=== PATIENT | female | born 1995 | race Hispanic/Latino ===

== ENCOUNTER 2021-03-14 12:49 | Observation (INO) | payer SELFPAY ==
[2021-03-14 13:30] LABS: Absolute Lymphocytes (CBC) 1.2 K/uL (0.7-4.9); Basophils % 0.8 % (0-1.3); Hematocrit 42.9 % (36.0-45.0); Lymphocytes % 25.2 % (15.3-44.8); MPV 7.5 fL (7.6-11.3); RBC Red Blood Cell Count 4.99 M/uL (3.86-4.86)
[2021-03-14 13:39] LABS: Urine Blood Trace-lysed (Negative); Urine Glucose Negative (Negative); Urine Protein Negative (Negative); Urine pH 6.5 (5.0-7.0)
[2021-03-14 13:51] LABS: Albumin 3.6 g/dL (3.4-5.0); Bilirubin Direct 0.3 mg/dL (0-0.2); Bilirubin Total 2.1 mg/dL (0.2-1.0); Protein, Total 7.7 g/dL (6.4-8.2)
[2021-03-14] MEDS ORDERED: ONDANSETRON 4 MG/2 ML VIAL ONE ×2 (14:53→17:01)
--- NOTE | 2021-03-14 15:02 | RAD REPORT ---
EXAM DESCRIPTION: CTAbdomen Pelvis W Contrast - 03/14/2021 2:53 pm CLINICAL HISTORY: Abdominal pain. ABD PAIN COMPARISON: No comparisons TECHNIQUE: Biphasic CT imaging of the abdomen and pelvis was performed with 100 ml non-ionic IV cont rast. All CT scans are performed using dose optimization technique as appropriate and may include automated exposure control or mA/KV adjustment according to patient size. FINDINGS: The lung bases are clear. The liver, spleen, pancreas, adrenal glands and kidneys are within normal limits. No bowel obstruction, free air, free fluid or abscess. The appendix is dilated to 11 mm with surroun ding inflammation. No evidence of significant lymphadenopathy. No suspicious bony findings. IMPRESSION: Acute appendicitis.
[2021-03-14] MEDS ORDERED: NA CHLORIDE 0.9% 0 ML ONE ×2 (15:20→15:38)
[2021-03-14] MEDS ORDERED: PIPERACIL/TAZO 3.375 GM VIAL IV ONE ×2 (15:20→15:39)
--- NOTE | 2021-03-14 15:21 | RAD REPORT ---
EXAM DESCRIPTION: US - Abdomen Exam Limited - 03/14/2021 3:12 pm CLINICAL HISTORY: ABD PAIN COMPARISON: <Comparisons> FINDINGS: The gallbladder demonstrates no gallstones. No pericholecystic fluid or gallbladder wall t hickening. The common bile duct is normal measuring 2 mm. The liver demonstrates no findings of intrahepatic biliary dilatation. IMPRESSION: Unremarkable examination.
[2021-03-14] MEDS ORDERED: NA CHLORIDE 0.9% 100 ML ONE (15:40)
--- NOTE | 2021-03-14 16:24 | ER ---
Nurse's Notes [facility] Name: Maria Guadalupe Daugherty Age: 25 yrs Sex: Female : 1995 Arrival Date: 03/14/2021 Time: 12:58 Bed 7 Private MD: Diagnosis: Lower abdominal pain, unspecified;Unspecified acute appendicitis Presentation: 03/14 13:13 Chief complaint: Patient states: Abd pain around belly button, pain gets worse when ld1 laughing. "I feel like something is sitting on me, extra weight/pressure on my stomach.". Coronavirus screen: At this time, the client does not indicate any symptoms associated with coronavirus-19. Ebola Screen: No symptoms or risks identified at this time. Initial Sepsis Screen: Does the patient meet any 2 criteria? No. Patient's initial sepsis screen is negative. Does the patient have a suspected source of infection? No. Patient's initial sepsis screen is negative. Risk Assessment: Do you want to hurt yourself or someone else? Patient reports no desire to harm self or others. Onset of symptoms was March 14, 2021. 13:13 Method Of Arrival: Ambulatory ld1 13:13 Acuity: MASON 3 ld1 Triage Assessment: 13:15 General: Appears in no apparent distress. comfortable, Behavior is calm, cooperative, ld1 appropriate for age. Pain: Complains of pain in umbilical area Pain does not radiate. Pain currently is 6 out of 10 on a pain scale. at worst was 10 out of 10 on a pain scale. Quality of pain is described as heavy, pressure, Pain began 1 day ago. Is continuous. EENT: No signs and/or symptoms were reported regarding the EENT system. Neuro: Level of Consciousness is awake, alert, obeys commands, Oriented to person, place, time, situation. Cardiovascular: Capillary refill < 3 seconds Patient's skin is warm and dry. Respiratory: Airway is patent Respiratory effort is even, unlabored, Respiratory pattern is regular, symmetrical. GI: Abdomen is round non-distended, Reports lower abdominal pain, upper abdominal pain, bloating, constipation, nausea. 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 - Social history:: Smoking status: Patient denies any tobacco usage or history of. Patient/guardian denies using alcohol. Screenin:06 Abuse screen: Denies threats or abuse. Denies injuries from another. Nutritional jt3 screening: No deficits noted. Tuberculosis screening: No symptoms or risk factors identified. Fall Risk None identified. Assessment: 15:06 General: Appears in no apparent distress. Behavior is calm, cooperative. GI: Bowel jt3 sounds present X 4 quads. Abd is soft Abdomen is tender to palpation in right lower quadrant and left lower quadrant. 16:05 Reassessment: Pt. states her pain is under control at this time. Alert and oriented x4. jt3 Call hayden within reach. . Vital Signs: 13:13 BP 120 / 89; Pulse 99; Resp 18; Temp 98.7(TE); Pulse Ox 99% on R/A; Weight 88.45 kg; ld1 Height 5 ft. 1 in. (154.94 cm); Pain 6/10; 16:04 BP 105 / 52; Pulse 97; Resp 16; Pulse Ox 97% on R/A; jt3 13:13 Body Mass Index 36.84 (88.45 kg, 154.94 cm) ld1 ED Course: 12:58 Patient arrived in ED. ds1 13:15 Triage completed. ld1 13:15 Arm band placed on right wrist. ld1 14:10 Vin Jackson PA is PHCP. jmm 14:10 Yousif Terry MD is Attending Physician. jmm 14:44 Gavin Keys, LATONIA is Primary Nurse. jt3 14:52 CT Abd/Pelvis - IV Contrast Only In Process Unspecified. EDMS 15:06 Patient has correct armband on for positive identification. Bed in low position. Call jt3 light in reach. Side rails up X2. 15:06 No provider procedures requiring assistance completed. Inserted saline lock: 20 gauge jt3 in right antecubital area, using aseptic technique. 15:11 US Abdomen Limited In Process Unspecified. EDMS 16:23 Carl Acevedo MD is Hospitalizing Provider. jmm 17:03 COVID-19 SARS RT PCR (Document "Date of Onset" if Symptomatic) Sent. [facility] 17:03 Initial lab(s) drawn, by ED staff, sent to lab. EKG done, by ED staff, reviewed by Porter Terry MD. Administered Medications: 15:30 Drug: Zosyn (piperacillin-tazobactam) 3.375 grams Route: IVPB; Infused Over: 60 mins; as6 Site: right antecubital; Outcome: 16:23 Decision to Hospitalize by Provider. [facility] 17:31 Patient left the ED. [facility] Signatures: Dispatcher [employer] EDMS Vin Jackson PA PA jmm Sanford, Demi ds1 Martinez, Maria 5 Margo Frances, RN RN ld1 Gavin Keys RN RN jt3 Dallin Mariscal RN RN as6
--- NOTE | 2021-03-14 16:25 | EDPHYS ---
Physician Documentation [facility] Name: Maria Guadalupe Daugherty Age: 25 yrs Sex: Female : 1995 Arrival Date: 03/14/2021 Time: 12:58 Bed 7 Private MD: Yousif Silverio HPI: 03/14 13:17 This 25 yrs old Female presents to ER via Ambulatory with complaints of jmm Abdominal Pain. 13:17 The patient presents with abdominal pain. Onset: The symptoms/episode began/occurred jmm gradually, 1 day(s) ago. The symptoms do not radiate. Associated signs and symptoms: Pertinent positives: nausea and vomiting, Pertinent negatives: fever. The symptoms are described as achy. Modifying factors: The symptoms are alleviated by nothing, the symptoms are aggravated by nothing. The patient has not experienced similar symptoms in the past. 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 - Social history:: Smoking status: Patient denies any tobacco usage or history of. Patient/guardian denies using alcohol. ROS: 13:17 Constitutional: Negative for fever, chills, and weight loss, Cardiovascular: Negative jmm for chest pain, palpitations, and edema, Respiratory: Negative for shortness of breath, cough, wheezing, and pleuritic chest pain. 13:17 Abdomen/GI: Positive for abdominal pain. 13:17 All other systems are negative. Exam: 13:17 Constitutional: This is a well developed, well nourished patient who is awake, alert, jmm and in no acute distress. Head/Face: atraumatic. Eyes: EOMI, no conjunctival erythema appreciated ENT: Moist Mucus Membranes Neck: Trachea midline, Supple Chest/axilla: Normal chest wall appearance and motion. Cardiovascular: Regular rate and rhythm. No edema appreciated Respiratory: Normal respirations, no respiratory distress appreciated 13:17 Back: Normal ROM Skin: General appearance color normal MS/ Extremity: Moves all extremities, no obvious deformities appreciated, no edema noted to the lower extremities Neuro: Awake and alert, normal gait Psych: Behavior is normal, Mood is normal, Patient is cooperative and pleasant 13:17 Abdomen/GI: Inspection: abdomen appears normal, Bowel sounds: normal, Palpation: soft, rebound tenderness, is appreciated in the right lower quadrant. Vital Signs: 13:13 BP 120 / 89; Pulse 99; Resp 18; Temp 98.7(TE); Pulse Ox 99% on R/A; Weight 88.45 kg; ld1 Height 5 ft. 1 in. (154.94 cm); Pain 6/10; 16:04 BP 105 / 52; Pulse 97; Resp 16; Pulse Ox 97% on R/A; jt3 13:13 Body Mass Index 36.84 (88.45 kg, 154.94 cm) ld1 MDM: 14:19 Patient medically screened. christy 16:22 Data reviewed: vital signs, nurses notes. Counseling: I had a detailed discussion with jimmie the patient and/or guardian regarding: the historical points, exam findings, and any diagnostic results supporting the discharge/admit diagnosis, lab results, radiology results, the need for further work-up and treatment in the hospital. ED course: I discussed the patient with Dr. Acevedo whom accepted the patient for admission. . 03/14 13:17 Order name: Basic Metabolic Panel; Complete Time: 14:12 [facility] 03/14 13:17 Order name: CBC with Diff; Complete Time: 14:12 1 03/14 13:17 Order name: Hepatic Function; Complete Time: 14:12 1 03/14 13:17 Order name: Lipase; Complete Time: 14:12 [facility] 03/14 13:39 Order name: Urine Dipstick-Ancillary; Complete Time: 14:12 [facility] 03/14 13:43 Order name: Urine --Ancillary (enter results); Complete Time: 15:32 bd 03/14 16:29 Order name: Basic Metabolic Panel [facility] 03/14 16:29 Order name: Basic Metabolic Panel [facility] 03/14 16:29 Order name: CBC with Automated Diff [facility] 03/14 16:29 Order name: CBC with Automated Diff [facility] 03/14 16:29 Order name: Lipase [facility] 03/14 16:29 Order name: Lipase [facility] 03/14 16:29 Order name: Liver (Hepatic) Function [facility] 03/14 16:29 Order name: Liver (Hepatic) Function [facility] 03/14 13:17 Order name: IV Saline Lock; Complete Time: 14:12 [facility] 03/14 13:17 Order name: Labs collected and sent; Complete Time: 14:12 [facility] 03/14 13:22 Order name: Urine Dipstick-Ancillary (obtain specimen); Complete Time: 14:15 [facility] 03/14 14:36 Order name: US Abdomen Limited; Complete Time: 15:32 [facility] 03/14 14:36 Order name: CT Abd/Pelvis - IV Contrast Only; Complete Time: 15:07 [facility] 03/14 16:29 Order name: NPO [facility] 03/14 16:31 Order name: COVID-19 SARS RT PCR (Document "Date of Onset" if Symptomatic) [facility] Administered Medications: 15:30 Drug: Zosyn (piperacillin-tazobactam) 3.375 grams Route: IVPB; Infused Over: 60 mins; as6 Site: right antecubital; Disposition: 23:16 Co-signature as Attending Physician, Yousif Terry MD I agree with the assessment and christy plan of care. Disposition Summary: 03/14/21 16:23 Hospitalization Ordered Hospitalization Status: Observation [facility] Provider: Carl Acevedo Condition: Stable [facility] Problem: new m Symptoms: are unchanged [facility] Bed/Room Type: Standard [facility] Location: Telemetry/MedSurg (observation)(03/14/21 16:40) bd Room Assignment: 225(03/14/21 16:40) bd Diagnosis - Lower abdominal pain, unspecified jmm - Unspecified acute appendicitis [facility] Forms: - Medication Reconciliation Form jmm - SBAR form [facility] Signatures: Dispatcher [employer] Ayesha Palomino Corey, MD MD cha Mickail, Joel, PA PA jmm Margo Frances RN RN ld1 Dallin Mariscal RN RN as6 Corrections: (The following items were deleted from the chart) 16:40 16:23 Operating Room jmm bd 16:40 16:23 jmm bd
[2021-03-14] MEDS ORDERED: ONDANSETRON 4 MG/2 ML VIAL IV PRN (16:26)
[2021-03-14] MEDS ORDERED: MORPHINE 4 MG/ML SYR IV PRN (16:26)
[2021-03-14] MEDS ORDERED: ACETAMINOPHEN 500 MG TAB PO PRN (16:26)
[2021-03-14] MEDS ORDERED: NA CIT/CITRIC AC 30 ML ORAL UDC ONE (16:51)
[2021-03-14] MEDS ORDERED: GLYCOPYRROLATE 0.2 MG/ML SYR ONE ×3 (16:56→17:45)
[2021-03-14] MEDS ORDERED: MIDAZOLAM HCL 2 MG/2 ML INJ ONE (16:56)
[2021-03-14] MEDS ORDERED: FENTANYL CITR 100 MCG/2 ML ONE (16:56)
[2021-03-14] MEDS ORDERED: LIDOCAINE 1% MPF 2 ML AMPULE ONE (16:56)
[2021-03-14] MEDS ORDERED: propofoL 200 MG/20 ML VIAL IV ONE (16:57)
[2021-03-14] MEDS ORDERED: ROCURONIUM 50 MG/5 ML VIAL IV ONE (16:59)
[2021-03-14] MEDS ORDERED: dexAMETHasone 10 MG/ML VIAL ONE (16:59)
[2021-03-14] MEDS: Ringers Lactate 1,000 ML IV ONE ×2 (17:00→17:08)
[2021-03-14] MEDS ORDERED: D5 0.45 NS 1,000 ML IV SCH (17:00)
--- NOTE | 2021-03-14 17:55 | P.BOP ---
Preoperative diagnosis: acute appendicitis Postoperative diagnosis: same Primary procedure: Laparoscopic appendectomy Estimated blood loss: <10cc Specimen: [email or web address] Findings: as above Anesthesia: General Transferred to: Recovery Room Condition: Good
[2021-03-14] MEDS ORDERED: NEOSTIGMINE 1 MG/ML -5 ML ONE (17:58)
[2021-03-14] MEDS ORDERED: CEFOXITIN SODIUM 1 GM/VIAL IVPB SCH (18:00)
[2021-03-14] MEDS: HYDROMORPHONE HCL 1 MG/ML INJ ONE ×6 (18:16→18:50)
[2021-03-14 19:21] VITALS: O2SAT 96
[2021-03-14 19:42] VITALS: BMI 36.8
[2021-03-14] MEDS: HYDROCODONE/APAP 5/325 MG TAB PO PRN (21:44)
[2021-03-14] MEDS: CEFOXITIN 1 GM in NA CHLORIDE 0.9% 50 ML IVPB SCH (23:11)
--- NOTE | 2021-03-15 02:57 | HP ---
Date of Admission: 03/14/2021 Diagnoses: Acute appendicitis. History Of Present Illness: This is a case of a 25-year-old patient, came with abdominal pain, epiga stric, right upper quadrant since yesterday. Today, it was not getting better so she decided to come to the ER. She was diagnosed with acute appendicitis and a surgical consult emergently was obtained . She denies any trauma. Denies any dysuria, hematochezia, or melena. Denies any travel out of the country. Denies any family member sick at home. She is still have nausea and vomiting. Last menst rual period is 03/11/2001. Allergies: NONE. Medications: None. Past Surgical History: None. Social History: She does not smoke. She does not drink alcohol. Family History: Noncontributory. Review of Systems: Nausea, vomiting, abdominal pain. 10-points otherwise unremarkable. Physical Examination: General: The patient is awake and alert. HEENT: Pupils are equal, reactive, anicteric. Neck: Supple. Chest: Clear. Breasts: Deferred. Abdomen: Soft and depressible. Right lower quadrant tenderness with Rovsing sign positive. Psoas s igns positive. Pelvic: Deferred. Rectal: Deferred. Extremities: Good capillary refill. Neuro: Cranial nerves 2-12 grossly within normal limits. Laboratory Data: Blood work shows WBC count of 4.9 with a neutrophils 67.6, potassium 3.0, BUN is 4. Total bilirubin of 2.1. Lipase 112. Imaging: CAT scan of the abdomen and pelvis interpreted by Dr. Inman as acute appendicitis with dila mae appendix and surrounding inflammation. Assessment: This is a 25-year-old patient with acute appendicitis. The benefits, alternatives, and risks of laparoscopic and possible open appendectomy were fully explained, which include, but not villareal ited to infection, bleeding, damage to adjacent structures, anesthetic complication, abscess, OH, and even . She also understands this may not relieve symptoms. She might need more than one surgi harish intervention. She understood, signed the consent. The same was explained to the patient's mom p er patient request. The OR was emergently called. JANE Voice ID: [id number]
--- NOTE | 2021-03-15 04:03 | OP ---
Date of Procedure: 03/14/2021 Surgeon: Carl Acevedo MD Preoperative Diagnosis: Acute appendicitis. Postoperative Diagnosis: Acute appendicitis. Procedure: Laparoscopic appendectomy. Estimated Blood Loss: Less than 10 mL. Specimen: Appendix. Anesthesia: General plus local. Indication: This is a case of a 25-year-old patient, who came to us with acute appendicitis. The be nefits, alternatives, and risks of laparoscopic possible open appendectomy were fully explained which include, but not limited to infection, bleeding, damage to adjacent structures, anesthesia complicat ion, ND, and even . She also understands this may not relieve symptoms. She might need more th an one surgical intervention. She understood, signed a consent. Procedure In Detail: The patient was brought to the operating room, placed in supine position. Anes thesia was done without complication. Abdominal area was prepped and draped in sterile fashion. A t cruz-out was called. Local anesthetic was applied to the area to be incised. First incision was done in the periumbilical region. Incision was carried down to fascia, which was opened under direct vis ion. Vicryl #1 placed inside the fascia. Mackenzie trocar was carefully introduced. No bleeding was o btained. I placed 2 more trocars, 5 mm each one of them in the suprapubic and left lower quadrant un christiano direct visualization. This allowed me to visualize an appendix, which looks inflamed and dilated as described on the CAT scan. We identified the base of the appendix and spared from this problem, so we created a window in the base of the appendix, transected that with Endo GAURAV 45 mm 3.5. The mes oappendix was transected with the Endo-GAURAV 45 mm vascular size. Further hemostasis was obtained with the help of 5 mm hemoclips. Appendix removed from abdominal cavity using EndoCatch through the umbi lical incision. It was inspected once again, no bleeding, no bowel leak. At that moment, I proceede d to remove the trocars under direct vision. Deflated pneumoperitoneum. Closed the fascia with #1 V icryl. Irrigated the subcutaneous tissue, closed with 3-0 chromic, and skin approximated with staple s. Sponge count and instrument count correct. The patient tolerated the procedure well. The patien t on her way to recovery in stable condition. HM/MODL Voice ID: [id number] Report ID: [id number]
[2021-03-15] MEDS ORDERED: CEFOXITIN SODIUM 1 GM/VIAL ONE (05:02)
[2021-03-15] MEDS ORDERED: NA CHLORIDE 0.9% 50 ML ONE (05:09)
[2021-03-15] MEDS: CEFOXITIN 1 GM in NA CHLORIDE 0.9% 50 ML IVPB SCH ×2 (05:11→11:32)
[2021-03-15] MEDS: HYDROCODONE/APAP 5/325 MG TAB PO PRN ×2 (05:12→10:29)
[2021-03-15 05:46] LABS: Absolute Lymphocytes (CBC) 0.8 K/uL (0.7-4.9); Basophils % 0.1 % (0-1.3); Hematocrit 39.2 % (36.0-45.0); Lymphocytes % 10.3 % (15.3-44.8); MPV 7.4 fL (7.6-11.3)
[2021-03-15 05:56] LABS: BUN Blood Urea Nitrogen 4 mg/dL (7-18); Bicarbonate 25 mmol/L (21-32); Glucose Level 148 mg/dL (74-106); Potassium 3.8 mmol/L (3.5-5.1); Sodium Level 139 mmol/L (136-145)
[2021-03-15 06:34] LABS: Blood Morphology Comment NOT SEEN (NOT SEEN); Platelet Estimate ADEQ; Platelets, Giant NOTED; White Blood Cell Scan OK (OK)
[2021-03-15 12:06] VITALS: BP 108/59; TEMP 98.1
== END 2021-03-15 12:15 | disposition home or self-care (01) ==
LOC: ER 12:49 → ERHOLD 16:25 → 2ND 19:11
PROVIDERS: ADMIT Surgery; ATTEND Surgery
PROC: 0DTJ4ZZ Resection of Appendix, Percutaneous Endoscopic Approach (ICD-10-PCS; principal; 2021-03-14 14:15)
DX: K35.80 Unspecified acute appendicitis (principal); Z20.822 Contact with and (suspected) exposure to COVID-19
CPT/HCPCS: 36415; 74177; 76705; 80048; 80076; 81003; 81025; 83690; 85025; 88304; 94010; 96374; 99284; G0378; J0694; J1100; J1170; J2250; J2405; J2543; J2704; J2710; J3010; J7050; J7120; J7799; Q9967; U0003

== ENCOUNTER 2024-10-04 15:27 | Emergency (ER) | payer BC, SELFPAY ==
--- OUTSIDE RECORDS SUMMARY | 2024-10-04 15:30 | XMS REPORT | Continuity of Care Document ---
Author Name Unknown Address [address] [facility] [place] [address] Organization [facility] [place] Address [address] [facility] [address] [place] [address] Care Team Providers Care Inorganic Chemistry Professor Name Role Phone LAMINE MACK Primary Care Physician Unavaila DOMITILA Trent Attending Clinician Unavailable DOMITILA WILLETT Attending Clinician Unavailable LAMINE MACK Attending Clinician Unavailable LAMINE MACK Attending Clinician Unavailable FRITZ BLOOM Attending Clinician Unavailable Fritz Bloom MD Attending Clinician [phone] Lamine Mack MD Attending Clinician [phone] Doctor Unassigned, [place] Attending Clinician [facility] Lab, Ang - Db Attending Clinician Unavailable Yessica Mcmullen MD Attending Clinician [phone] VALENTINA GALLEGOS Attending Clinician Karolina vailable YING SOLORZANO Attending Clinician Unavailable Yign Pemberton Attending Clinician [phone] Domitila Willett MD Attending Clinician [phone] Valentina Gallegos MD Attending Clinician Lab, Ang - Db Attending Clinician Unavailable Teresa Esparza LMSW Attending Clinician Doctor Unassigned, [place] Attending Clinician U navailable Payers Payer Name Policy Type Policy Number Effective Date Expirati on Date Source [facility] [id number] 2022 00:00:00 Problems Condition Name Condition Details Condition Category Status Onset Date Resolution Date Last Treatment Date Treating Clinician Comments Source Precordial pain Precordial pain Disease Active 06-11 00:00: 00 [facility] Elevated troponin Elevated troponin Disease Active 06-11 00:00: 00 [facility] PVC's (premature ventricula r contractio ns) PVC's (premature ventricula r contractio ns) Disease Active 06-11 00:00: 00 [facility] control counseling control counseling Disease Resolve d 09-24 00:00: 00 2024-03-12 00:00:00 2024-03-12 14:58:05 [facility] Allergies, Adverse Reactions, Alerts Allergy Name Allergy Type Status Severity Reaction(s) Onset Date Inactive Date Treating Clinician Comments Source NO KNOWN ALLERGIE S Drug Class Active [facility] Social History Social Habit Start Date Stop Date Quantity Comments Source Gender identity [facility] Alcoholic beverage intake 2024-06-15 00:00:00 2024-06-15 00:00:00 Current drinker of alcohol (finding) [facility] History of Social function 2024-05-18 00:00:00 2024-05-18 00:00:00 [facility] Alcohol intake 2023-03-12 00:00:00 2023-03-12 00:00:00 Current drinker of alcohol (finding) [facility] Exposure to SARS-CoV-2 (event) 2022-08-25 00:00:00 2022-09-04 16:29:00 Not sure [facility] Tobacco use and exposure 2022-07-03 00:00:00 2022-07-03 00:00:00 Smokeless tobacco non-user [facility] Alcohol Comment 2022-07-03 00:00:00 2022-07-03 00:00:00 social-1-2 drinks monthly [facility] Sex assigned at 1995 00:00:00 1995 00:00:00 [facility] Smoking Status Start Date Stop Date Source Tobacco smoking consumption unknown [facility] Never smoked tobacco [facility] Medications Ordered Medication Name Filled Medication Name Start Date Stop Date Current Medication? Ordering Clinician Indication Dosage Frequency Signature (SIG) Comments Components Source pantoprazol e 20 mg EC tablet 05-18 00:00: 00 06-18 05:59 :00 No [id number] 20mg Take 1 tablet by mouth in the morning and 1 tablet in the evening. Do all this for 30 days. [facility] ergocalcife rol, vitamin d2, (VITAMIN D2) 1,250 mcg (50,000 unit) capsule 2023-05 00:00: 00 07-03 05:59 :00 No [id number] Take 1 capsule by mouth weekly for 12 doses. [facility] norethindro ne-e.estrad ioL-iron (MICROGESTI N FE) 1.5 mg-30 mcg (21)/75 mg (7) tablet 2023-05 00:00: 00 Yes [id number] 1{tbl} Take 1 tablet by mouth every morning. [facility] bromphenira mine-pseudo ephedrine-D M (BROMFED DM) 2-30-10 mg/5 mL syrup 2023-05 0 00:00: 00 03-16 05:59 :00 No [id number] 5mL Take 5 mL by mouth 4 (four) times daily as needed for Congestion /Allergies or Cough for up to 10 days. [facility] methylPREDN ISolone 4 mg tablets 2023-05 0 00:00: 00 03-12 04:59 :00 No [id number] Take by mouth SEE-INSTRU CTIONS for 6 days. follow package directions [facility] norethindro ne-e.estrad ioL-iron (MICROGESTI N FE) 1.5 mg-30 mcg (21)/75 mg (7) tablet 5-14 00:00: 00 03-12 00:00 :00 No [id number] 1{tbl} TAKE ONE (1) TABLET(S) BY MOUTH EVERY MORNING. [facility] norethindro ne-e.estrad ioL-iron (MICROGESTI N FE) 1.5 mg-30 mcg (21)/75 mg (7) tablet 2-21 00:00: 00 09-23 00:00 :00 No [id number] 1{tbl} Take 1 tablet by mouth in the morning. [facility] psyllium (FIBER) 0.52 gram capsule 2022-05 00:00: 00 04-03 00:00 :00 No [id number] .52g Take 1 capsule by mouth in the morning. [facility] polyethylen e glycol 3350 17 gram powder 2022-05 00:00: 00 04-03 00:00 :00 No [id number] 1{packe t} Take 1 Packet by mouth in the morning. [facility] omeprazole 40 mg capsule 2022-05 00:00: 00 04-03 00:00 :00 No [id number] 40mg Take 1 capsule by mouth in the morning. [facility] fluticasone propionate 50 mcg/actuati on nasal spray 01-04 00:00: 00 Yes [id number] 1{spray } Use 1 [place] in each nostril in the morning. [facility] cetirizine (ZYRTEC) 10 mg tablet 01-04 00:00: 00 04-03 00:00 :00 No [id number] 10mg Take 1 tablet by mouth in the morning. [facility] famotidine (PEPCID) 40 mg tablet 01-04 00:00: 00 02-04 04:59 :00 No [id number] 40mg Take 1 tablet by mouth in the morning for 30 days. [facility] doxycycline hyclate 100 mg tablet 08-08 00:00: 00 08-16 04:59 :00 No [id number] 100mg Take 1 tablet by mouth in the morning and 1 tablet in the evening. Do all this for 7 days. [facility] doxycycline 100 mg EC tablet 08-07 00:00: 00 08-08 00:00 :00 No [id number] 100mg Take 1 tablet by mouth in the morning and 1 tablet in the evening. Do all this for 7 days. [facility] norethindro ne 0.35 mg tablet 08-02 09:17: 47 08-02 00:00 :00 No 1{tbl} Take 1 tablet by mouth in the morning. [facility] norethindro ne-e.estrad ioL-iron 1.5 mg-30 mcg (21)/75 mg (7) per tablet 08-02 00:00: 00 07-03 00:00 :00 No [id number] 1{tbl} Take 1 tablet by mouth in the morning. [facility] Immunizations Ordered Immunization Name Filled Immunization Name Date Status Comments Source Flu Injectable MDCK Pres-Free (FLUCELVAX) 2024-04-03 00:00:00 Completed [facility] Influenza Virus Vaccine Quad IM, Preserv and ABX Free 6 MO-64 YRS (FLUCELVAX) 2023-03-12 00:00:00 Completed [facility] SARS-COV-2 COVID-19 PFIZER VACCINE 2020-12-04 00:00:00 Completed [facility] SARS-COV-2 COVID-19 PFIZER VACCINE 2020-12-04 00:00:00 Completed [facility] SARS-COV-2 COVID-19 PFIZER VACCINE 2020-12-04 00:00:00 Completed [facility] SARS-COV-2 COVID-19 PFIZER VACCINE 2020-12-04 00:00:00 Completed [facility] SARS-COV-2 COVID-19 PFIZER VACCINE 2020-12-04 00:00:00 Completed [facility] SARS-COV-2 COVID-19 PFIZER VACCINE 2020-12-04 00:00:00 Completed [facility] SARS-COV-2 COVID-19 PFIZER VACCINE 2020-12-04 00:00:00 Completed [facility] SARS-COV-2 COVID-19 PFIZER VACCINE 2020-12-04 00:00:00 Completed [facility] SARS-COV-2 COVID-19 PFIZER VACCINE 2020-12-04 00:00:00 Completed [facility] SARS-COV-2 COVID-19 PFIZER VACCINE 2020-12-04 00:00:00 Completed SARS-COV-2 COVID-19 PFIZER VACCINE 2020-12-04 00:00:00 Completed [facility] SARS-COV-2 COVID-19 PFIZER VACCINE 2020-12-04 00:00:00 Completed [facility] SARS-COV-2 COVID-19 PFIZER VACCINE 2020-12-04 00:00:00 Completed [facility] SARS-COV-2 COVID-19 PFIZER VACCINE 2020-11-13 00:00:00 Completed [facility] SARS-COV-2 COVID-19 PFIZER VACCINE 2020-11-13 00:00:00 Completed [facility] SARS-COV-2 COVID-19 PFIZER VACCINE 2020-11-13 00:00:00 Completed [facility] SARS-COV-2 COVID-19 PFIZER VACCINE 2020-11-13 00:00:00 Completed [facility] SARS-COV-2 COVID-19 PFIZER VACCINE 2020-11-13 00:00:00 Completed [facility] SARS-COV-2 COVID-19 PFIZER VACCINE 2020-11-13 00:00:00 Completed [facility] SARS-COV-2 COVID-19 PFIZER VACCINE 2020-11-13 00:00:00 Completed [facility] SARS-COV-2 COVID-19 PFIZER VACCINE 2020-11-13 00:00:00 Completed [facility] SARS-COV-2 COVID-19 PFIZER VACCINE 2020-11-13 00:00:00 Completed [facility] SARS-COV-2 COVID-19 PFIZER VACCINE 2020-11-13 00:00:00 Completed SARS-COV-2 COVID-19 PFIZER VACCINE 2020-11-13 00:00:00 Completed [facility] SARS-COV-2 COVID-19 PFIZER VACCINE 2020-11-13 00:00:00 Completed [facility] SARS-COV-2 COVID-19 PFIZER VACCINE 2020-11-13 00:00:00 Completed [facility] SARS-COV-2 COVID-19 PFIZER VACCINE Unknown Completed [facility] SARS-COV-2 COVID-19 PFIZER VACCINE Unknown Completed [facility] SARS-COV-2 COVID-19 PFIZER VACCINE Unknown Completed [facility] SARS-COV-2 COVID-19 PFIZER VACCINE Unknown Completed [facility] Influenza Virus Vaccine Quad IM, Preserv and ABX Free 6 MO-64 YRS (FLUCELVAX) Unknown Completed [facility] SARS-COV-2 COVID-19 PFIZER VACCINE Unknown Completed [facility] Influenza Virus Vaccine Quad IM, Preserv and ABX Free 6 MO-64 YRS (FLUCELVAX) Unknown Completed [facility] SARS-COV-2 COVID-19 PFIZER VACCINE Unknown Completed [facility] Influenza Virus Vaccine Quad IM, Preserv and ABX Free 6 MO-64 YRS (FLUCELVAX) Unknown Completed [facility] Vital Signs Vital Name Observation Time Observation Value Comments S ource Systolic blood pressure 2024-06-19 17:16:00 115 mm[Hg] [facility] acute hospital Diastolic blood pressure 2024-06-19 17:16:00 74 mm[Hg] General acute hospital Heart rate 2024-06-19 17:16:00 73 /min [facility] Body temperature 2024-06-19 17:16:00 37.22 [facility] Respiratory rate 2024-06-19 17:16:00 16 /min [facility] Body height 2024-06-19 17:16:00 154.9 cm [facility] Body weight 2024-06-19 17:16:00 90.436 kg [facility] BMI 2024-06-19 17:16:00 37.67 kg/m2 [facility] Oxygen saturation in Arterial blood by Pulse oximetry 2024-06-19 17:16:00 99 /min [facility] acute hospital Systolic blood pressure 2024-06-15 15:38:00 113 mm[Hg] General acute hospital Diastolic blood pressure 2024-06-15 15:38:00 69 mm[Hg] General acute hospital Heart rate 2024-06-15 15:38:00 64 /min [facility] Body height 2024-06-15 15:38:00 154.9 cm [facility] weight 2024-06-15 15:38:00 89.812 kg [facility] BMI 2024-06-15 15:38:00 37.41 kg/m2 [facility] Oxygen saturation in Arterial blood by Pulse oximetry 2024-06-15 15:38:00 98 /min General acute hospital Systolic blood pressure 2024-05-22 14:42:00 116 mm[Hg] General acute hospital Diastolic blood pressure 2024-05-22 14:42:00 61 mm[Hg] General acute hospital Heart rate 2024-05-22 14:42:00 64 /min [facility] Body temperature 2024-05-22 14:42:00 36.5 [facility] Respiratory rate 2024-05-22 14:42:00 20 /min [facility] Body height 2024-05-22 14:42:00 154.9 cm [facility] Body weight 2024-05-22 14:42:00 89.869 kg [facility] BMI 2024-05-22 14:42:00 37.44 kg/m2 [facility] Oxygen saturation in Arterial blood by Pulse oximetry 2024-05-22 14:42:00 99 /min [facility] acute hospital Systolic blood pressure 2024-05-18 15:26:00 121 mm[Hg] General acute hospital Diastolic blood pressure 2024-05-18 15:26:00 79 mm[Hg] General acute hospital Heart rate 2024-05-18 15:26:00 70 /min [facility] Body height 2024-05-18 15:26:00 154.9 cm [facility] Body weight 2024-05-18 15:26:00 89.132 kg [facility] [place] BMI 2024-05-18 15:26:00 37.13 kg/m2 [facility] Oxygen saturation in Arterial blood by Pulse oximetry 2024-05-18 15:26:00 98 /min General acute hospital Systolic blood pressure 2024-04-03 15:00:00 128 mm[Hg] [place] [facility] Diastolic blood pressure 2024-04-03 15:00:00 83 mm[Hg] General acute hospital Heart rate 2024-04-03 15:00:00 70 /min [facility] Body height 2024-04-03 15:00:00 154.9 cm [facility] Body weight 2024-04-03 15:00:00 89.812 kg [facility] BMI 2024-04-03 15:00:00 37.41 kg/m2 [facility] Oxygen saturation in Arterial blood by Pulse oximetry 2024-04-03 15:00:00 99 /min General acute hospital Systolic blood pressure 2024-03-12 19:44:00 133 mm[Hg] General acute hospital Diastolic blood pressure 2024-03-12 19:44:00 78 mm[Hg] General acute hospital Heart rate 2024-03-12 19:44:00 81 /min [facility] Body temperature 2024-03-12 19:44:00 36.94 [facility] Body height 2024-03-12 19:44:00 154.9 cm [facility] Body weight 2024-03-12 19:44:00 86.818 kg [facility] BMI 2024-03-12 19:44:00 36.16 kg/m2 [facility] Systolic blood pressure 2024-03-05 14:17:00 110 mm[Hg] General acute hospital Diastolic blood pressure 2024-03-05 14:17:00 74 mm[Hg] General acute hospital Heart rate 2024-03-05 14:17:00 87 /min [facility] Body temperature 2024-03-05 14:17:00 36.83 [facility] Respiratory rate 2024-03-05 14:17:00 18 /min [facility] Body height 2024-03-05 14:17:00 154.9 cm [facility] Body weight 2024-03-05 14:17:00 86.637 kg [facility] BMI 2024-03-05 14:17:00 36.09 kg/m2 [facility] Oxygen saturation in Arterial blood by Pulse oximetry 2024-03-05 14:17:00 98 /min [facility] acute hospital Systolic blood pressure 2023-03-12 15:48:00 99 mm[Hg] General acute hospital Diastolic blood pressure 2023-03-12 15:48:00 67 mm[Hg] General acute hospital Heart rate 2023-03-12 15:48:00 68 /min [facility] Respiratory rate 2023-03-12 15:48:00 18 /min [facility] Body height 2023-03-12 15:48:00 154.9 cm [facility] Body weight 2023-03-12 15:48:00 84.823 kg [facility] BMI 2023-03-12 15:48:00 35.33 kg/m2 [facility] Oxygen saturation in Arterial blood by Pulse oximetry 2023-03-12 15:48:00 97 /min General acute hospital Systolic blood pressure 2023-01-04 14:33:00 127 mm[Hg] General acute hospital Diastolic blood pressure 2023-01-04 14:33:00 81 mm[Hg] General acute hospital Heart rate 2023-01-04 14:33:00 68 /min [facility] Res[facility] rate 2023-01-04 14:33:00 18 /min [facility] Body height 2023-01-04 14:33:00 154.9 cm [facility] Body weight 2023-01-04 14:33:00 88.451 kg [facility] [address] [facility] BMI 2023-01-04 14:33:00 36.84 kg/m2 [facility] Oxygen saturation in Arterial blood by Pulse oximetry 2023-01-04 14:33:00 96 /min General acute hospital Systolic blood pressure 2022-09-24 20:38:00 109 mm[Hg] General acute hospital Diastolic blood pressure 2022-09-24 20:38:00 76 mm[Hg] General acute hospital Heart rate 2022-09-24 20:38:00 73 /min [facility] Body temperature 2022-09-24 20:38:00 36.72 [facility] Respiratory rate 2022-09-24 20:38:00 18 /min [facility] Body height 2022-09-24 20:38:00 154.9 cm [facility] Body weight 2022-09-24 20:38:00 93.078 kg [facility] BMI 2022-09-24 20:38:00 38.77 kg/m2 [facility] Oxygen saturation in Arterial blood by Pulse oximetry 2022-09-24 20:38:00 99 /min General acute hospital Systolic blood pressure 2022-08-08 15:21:00 130 mm[Hg] General acute hospital Diastolic blood pressure 2022-08-08 15:21:00 84 mm[Hg] General acute hospital Heart rate 2022-08-08 15:21:00 68 /min [facility] Body temperature 2022-08-08 15:21:00 36.39 [facility] Respiratory rate 2022-08-08 15:21:00 18 /min [facility] Body height 2022-08-08 15:21:00 154.9 cm [facility] Body weight 2022-08-08 15:21:00 94.711 kg [facility] BMI 2022-08-08 15:21:00 39.45 kg/m2 [facility] Oxygen saturation in Arterial blood by Pulse oximetry 2022-08-08 15:21:00 98 /min General acute hospital Systolic blood pressure 2022-08-02 14:03:00 134 mm[Hg] General acute hospital Diastolic blood pressure 2022-08-02 14:03:00 84 mm[Hg] General acute hospital Heart rate 2022-08-02 14:03:00 74 /min [facility] Body temperature 2022-08-02 14:03:00 36.22 [facility] Respiratory rate 2022-08-02 14:03:00 18 /min [facility] Body height 2022-08-02 14:03:00 154.9 cm [facility] Body weight 2022-08-02 14:03:00 94.303 kg [facility] BMI 2022-08-02 14:03:00 39.28 kg/m2 [facility] Oxygen saturation in Arterial blood by Pulse oximetry 2022-08-02 14:03:00 98 /min General acute hospital Systolic blood pressure 2022-07-03 15:20:00 130 mm[Hg] General acute hospital Diastolic blood pressure 2022-07-03 15:20:00 77 mm[Hg] General acute hospital Heart rate 2022-07-03 15:20:00 70 /min [facility] Body temperature 2022-07-03 15:20:00 36.94 [facility] Respiratory rate 2022-07-03 15:20:00 18 /min [facility] Body height 2022-07-03 15:20:00 152.4 cm [facility] Body weight 2022-07-03 15:20:00 94.076 kg [facility] BMI 2022-07-03 15:20:00 40.51 kg/m2 [facility] Oxygen saturation in Arterial blood by Pulse oximetry 2022-07-03 15:20:00 96 /min General acute hospital Procedures Procedure Date / Time Performed Performing Clinician Source TRANSTHORACIC ECHO (TTE) COMPLETE 2024-06-10 15:32:00 Fritz Bloom [facility] HB ECG ROUTINE & RHYTHM STRIP 2024-05-18 15:58:50 Lamine Mack [facility] FLU VACC ([id number]), 6 MO-64 YRS, .5ML, IM, TIV (FLUCELVAX) 2024-04-03 15:15:20 Lamine Mack [facility] POCT TEST 2024-03-12 00:00:00 Domitila Willett [facility] POCT MOLECULAR FLU 2024-03-05 14:39:00 Ying Solorzano [facility] FLU VACC (), 6 MO-64 YRS, .5ML, IM, QUAD (FLUCELVAX) 2023-03-12 16:34:01 Valentina Gallegos [facility] POCT URINALYSIS 2023-03-12 00:00:00 Valentina Gallegos [facility] POCT SARS-COV-2 ANTIGEN (BINAX NOW) 2023-01-04 15:00:00 Valentina Gallegos [facility] CBC WITH DIFF 2022-08-08 16:04:00 Valentina Gallegos [facility] POCT URINALYSIS 2022-08-08 15:50:00 Valentina Gallegos [facility] CONSENT/REFUSAL FOR DIAGNOSIS AND TREATMENT 2022-07-03 15:11:09 Doctor Unassigned, [place] [facility] Encounters Start Date/Time End Date/Time Encounter Type Admission Type Attending [facility] Care Facility Care Department Encounter ID Source 2024-12-14 09:20:00 2024-12-14 09:20:00 Outpatient LAMINE ESCOBAR FAKE[facility] [id number] [facility] 2024-06-19 11:00:00 2024-06-19 11:39:53 Outpatient R FRITZ BLOOM [facility] [id number] [facility] 2024-06-19 11:00:00 2024-06-19 11:39:53 Office Visit Fritz Bloom [facility] [id number] 350.1.13.10 4.2.7.2.686 [id number] [facility] 2024-06-15 09:20:00 2024-06-15 09:59:46 Outpatient R LAMINE MACK [facility] [id number] [facility] 2024-06-15 09:20:00 2024-06-15 09:59:46 Office Visit Lamine Mack [facility] [id number] 350.1.13.10 4.2.7.2.686 [id number] [facility] 2024-06-12 00:00:00 2024-06-12 15:14:19 Telephone [facility] BUILD[facility] [id number] 350.1.13.10 4.2.7.2.686 [id number] [facility] 2024-06-12 00:00:00 2024-06-12 10:54:35 Patient Secure Msg Doctor Unassigned, [place] Doctor Unassigned, [place] [facility] [id number] 350.1.13.10 4.2.7.2.686 [id number] [facility] 2024-06-11 00:00:00 2024-06-12 08:44:44 Telephone Fritz Bloom [facility] [id number] 350.1.13.10 4.2.7.2.686 [id number] [facility] 2024-06-10 08:18:43 2024-06-10 23:59:00 [facility] 1.2.840.114 350.1.13.10 4.2.7.2.686 [id number] [facility] 2024-06-10 08:00:00 2024-06-10 08:17:00 Outpatient R FRITZ BLOOM [facility] [id number] [facility] 2024-06-10 08:00:00 2024-06-10 08:17:00 [facility] 1.2.840.114 350.1.13.10 4.2.7.2.686 [id number] [facility] 2024-05-25 00:00:00 2024-05-25 16:29:36 Telephone Chad Bloomammed [facility] 1.2.840.114 350.1.13.10 4.2.7.2.686 [id number] [facility] 2024-05-22 10:00:00 2024-05-22 10:15:00 Family Reunification Specialist Visit Lab, Blake Lantig[place] [facility] Lab, Blake Tang [facility] 1.2.840.114 350.1.13.10 4.2.7.2.686 [id number] [facility] 2024-05-22 08:30:00 2024-05-22 09:27:11 Outpatient R FRITZ BLOOM [facility] [id number] [facility] 2024-05-22 08:30:00 2024-05-22 09:27:11 Office Visit Chad Bloomammed [facility] 1.2.840.114 350.1.13.10 4.2.7.2.686 [id number] [facility] 2024-05-18 00:00:00 2024-05-18 14:41:19 Telephone Yessica Mcmullen [facility] [place] 1.2.840.114 350.1.13.10 4.2.7.2.686 [id number] [facility] 2024-05-18 10:30:00 2024-05-18 10:45:00 Family Reunification Specialist Visit Lab, Ang - Db Lamine Mack Lab, Ang - Db [facility] [id number] 350.1.13.10 4.2.7.2.686 [id number] [facility] 2024-05-18 09:20:00 2024-05-18 10:26:41 Outpatient R SAUL, LAMINE MACK, LAMINE [facility] [id number] [facility] 2024-05-18 09:20:00 2024-05-18 10:26:41 Office Visit Lamine Mack [facility] 1.284.114 350.1.13.10 4.2.7.2.686 [id number] [facility] 2024-04-25 00:00:00 2024-04-27 11:55:00 Patient Secure Msg [facility] OFF[facility] BUILDING 1.284.114 350.1.13.10 4.2.7.2.686 [id number] [facility] 2024-03-12 00:00:00 2024-04-18 18:26:24 Patient Secure Msg Doctor Unassigned, [place] Doctor Unassigned, [place] [facility] NAL BUILDING 1.2840.114 350.1.13.10 4.2.7.2.686 [id number] [facility] 2024-04-15 00:00:00 2024-04-15 16:37:50 Telephone Lamine Mack [facility] OFF[facility] BUILDING 1.284.114 350.1.13.10 4.2.7.2.686 [id number] [facility] 2024-04-15 12:45:00 2024-04-15 13:00:00 Family Reunification Specialist Visit Lab, Ang - Db Mack Lamine Lab, Ang - Db [facility] MED[facility] OFFICE BUILDING 1.2.840.114 350.1.13.10 4.2.7.2.686 [id number] [facility] 2024-04-15 12:45:00 2024-04-15 12:45:00 Outpatient R MACKLAMINEQUI, CHRISTOFEREHA [facility] [id number] [facility] 2024-04-07 09:20:00 2024-04-07 09:20:00 Outpatient R VALENTINA GALELGOS [facility] [id number] [facility] 2024-04-03 08:40:00 2024-04-03 09:21:42 Outpatient R MACK, LAMINE CHOQUI, CHRISTOFEREHA [facility] [id number] [facility] 2024-04-03 08:40:00 2024-04-03 09:21:42 Office Visit MackLamine [facility] OFF[facility] BUILDING 1.2.840.114 350.1.13.10 4.2.7.2.686 [id number] [facility] 2024-04-03 08:00:00 2024-04-03 08:00:00 Outpatient R YING SOLORZANO [facility] [id number] [facility] 2024-03-11 00:00:00 2024-03-30 18:54:31 [facility] MED[facility] OFFICE BUILDING 1.2.840.114 350.1.13.10 4.2.7.2.686 [id number] [facility] 2024-03-12 14:30:00 2024-03-12 14:45:00 Office Visit Domitila Willett [facility] NAL BUILDING 1.2.840.114 350.1.13.10 4.2.7.2.686 [id number] [facility] 2024-03-12 14:30:00 2024-03-12 14:30:00 Outpatient R WILLETT MARTA ROCHAEN [facility] [id number] [facility] 2024-03-05 09:00:00 2024-03-05 09:56:59 Outpatient R CAMILADYLAN YING [facility] [id number] [facility] 2024-03-05 09:00:00 2024-03-05 09:56:59 [facility] 1.2.840.114 350.1.13.10 4.2.7.2.686 [id number] [facility] 2023-09-24 00:00:00 2023-09-24 14:47:30 [facility] 1.2.840.114 350.1.13.10 4.2.7.2.686 [id number] [facility] 2023-07-03 00:00:00 2023-07-03 00:00:00 Refill [facility] 1.2.840.114 350.1.13.10 4.2.7.2.686 [id number] [facility] 2023-03-18 00:00:00 2023-03-18 00:00:00 Outpatient R VALENTINA GALLEGOS [facility] [id number] [facility] 2023-03-12 10:20:00 2023-03-12 11:34:28 Outpatient R VALENTINA GALLEGOS [facility] [id number] [facility] 2023-03-12 10:20:00 2023-03-12 11:34:28 Office Visit Valentina Gallegos Clara [facility] OFF[facility] BUILDING 1.840.114 350.1.13.10 4.2.7.2.686 [id number] [facility] 2023-01-04 09:40:00 2023-01-04 10:00:00 Office Visit Rosy Valentina Clara [facility] OFF[facility] BUILDING 1.840.114 350.1.13.10 4.2.7.2.686 [id number] [facility] 2023-01-04 09:40:00 2023-01-04 09:40:00 Outpatient R VALENTINA GALLEGOS [facility] [id number] [facility] 2022-12-25 15:00:00 2022-12-25 15:00:00 Outpatient R DOMITILA WILLETT [facility] [id number] [facility] 2022-12-14 00:00:00 2022-12-14 00:00:00 Patient Secure Msg Domitila Willett [facility] BUILDING 1.840.114 350.1.13.10 4.2.7.2.686 [id number] [facility] 2022-11-28 00:00:00 2022-11-28 00:00:00 Patient Secure Msg Domitila Willett [facility] NAL BUILDING 1..840.114 350.1.13.10 4.2.7.2.686 [id number] [facility] 2022-10-24 00:00:00 2022-10-24 00:00:00 Refill Valentina Gallegos Clara [facility] 1.840.114 350.1.13.10 4.2.7.2.686 [id number] [facility] 2022-10-24 00:00:00 2022-10-24 00:00:00 Patient Secure Msg Domitila Willett [facility] BUILDING 1..840.114 350.1.13.10 4.2.7.2.686 [id number] [facility] 2022-09-24 15:00:00 2022-09-24 15:50:45 Office Visit Domitila Willett [facility] BUILDING 1.840.114 350.1.13.10 4.2.7.2.686 [id number] [facility] 2022-09-24 15:00:00 2022-09-24 15:50:45 Outpatient R DOMITILA WILLETT [facility] [id number] [facility] 2022-09-04 16:15:00 2022-09-04 16:30:00 Family Reunification Specialist Visit Lab, Valentina Mix [facility] 1..840.114 350.1.13.10 4.2.7.2.686 [id number] [facility] 2022-09-04 16:15:00 2022-09-04 16:15:00 Outpatient R VALENTINA GALLEGOS [facility] [id number] [facility] 2022-08-08 11:00:00 2022-08-08 12:02:33 Family Reunification Specialist Visit Lab, Valentina Mix [facility] OFF[facility] BU[facility] 1..840.114 350.1.13.10 4.2.7.2.686 [id number] [facility] 2022-08-08 10:15:00 2022-08-08 10:55:27 Office Visit Valentina Gallegos [facility] MED[facility] OFFICE BUILDING 1.840.114 350.1.13.10 4.2.7.2.686 [id number] [facility] 2022-08-08 10:15:00 2022-08-08 10:55:27 Outpatient R VALENTINA GALLEGOS [facility] [id number] [facility] 2022-08-08 00:00:00 2022-08-08 00:00:00 Patient Secure Msg Valentina Gallegos [facility] 1.114 350.1.13.10 4.2.7.2.686 [id number] [facility] 2022-08-07 00:00:00 2022-08-07 00:00:00 Case Management Valentina Gallegos [facility] OFF[facility] BUILDING 1.84.114 350.1.13.10 4.2.7.2.686 [id number] [facility] 2022-08-03 00:00:00 2022-08-03 00:00:00 Patient Secure Msg Valentina Gallegos [facility] 1.84114 350.1.13.10 4.2.7.2.686 [id number] [facility] 2022-08-02 09:00:00 2022-08-02 09:31:29 Outpatient R VALENTINA GALLEGOS [facility] [id number] [facility] 2022-08-02 09:00:00 2022-08-02 09:31:29 Office Visit Valentina Gallegos [facility] 1.84.114 350.1.13.10 4.2.7.2.686 [id number] [facility] 2022-07-04 00:00:00 2022-07-04 00:00:00 Patient Outreach Teresa Esparza [facility] MED[facility] OFFICE BUILDING 1.2.840.114 350.1.13.10 4.2.7.2.686 [id number] [facility] 2022-07-03 09:00:00 2022-07-03 10:01:58 Office Visit Valentina Gallegos [facility] OFFICE BUILDING 1..840.114 350.1.13.10 4.2.7.2.686 [id number] [facility] 2022-07-03 09:00:00 2022-07-03 10:01:58 Outpatient R VALENTINA GALLEGOS [facility] [id number] [facility] 2022-07-03 00:00:00 2022-07-03 00:00:00 Orders Only Doctor Unassigned, [place] [facility] 1.2.840.114 350.1.13.10 4.2.7.2.686 [id number] [facility] Results Test Description Test Time Test Comments Results Result Co mments Source [facility] [id number] 19:43:00* Test Item Value Reference Range Interpretation Comme nts POCT PREG (test code = 1605) Negative On board controls acceptable with C Line (test code = 3574) Yes POCT PREG LOT # (test code = 3575) POCT PREG TEST DATE ( test code = 3576) [facility] Molecular [id number] 14:51:10* Test Item Value Reference Range Interpretation Comme nts POCT Molecular FluA (test co de = 75217-6) Negative Negative POCT Molecular FluB (test co de = 95738-1) Negative Negative Lab Interpretation (test cod e = 65706-7) Normal [facility] URINALYSIS W SPECIFIC [id number] 16:24:00* Test Item Value Reference Range Interpretation Comme nts POCT U SP GRAV (test code = 3255) 1.025 mg/dl 1.005-1.025 POCT PH U (test code = 3254) 6 mg/dl 5-8 POCT U LEUK EST (test code = 3263) trace Negative - Negative POCT U NIT (test code = 3262) Negative Negative - Negati ve POCT U PROT (test code = 3259) Negative Negative - Negative POCT U GLU (test code = 3256) Negative Negative - Negati ve POCT U KETONE (test code = 3258) Negative Negative - Negative POCT U UROBILI (test code = 3260) Normal 0.2-1 POCT U BILI (test code = 3261) Negative Negative - Negative POCT U BLD (test code = 3257) 5+ Negative - Negati ve POCT U COLOR (test code = 3266) Mirlande POCT U APPEAR (test code = 3267) Clear [facility] URINALYSIS W SPECIFIC [id number] 16:24:00* Test Item Value Reference Range Interpretation Comme nts POCT U SP GRAV (test code = 3255) 1.025 mg/dl 1.005-1.025 POCT PH U (test code = 3254) 6 mg/dl 5-8 POCT U LEUK EST (test code = 3263) trace Negative - Negative POCT U NIT (test code = 3262) Negative Negative - Negati ve POCT U PROT (test code = 3259) Negative Negative - Negative POCT U GLU (test code = 3256) Negative Negative - Negati ve POCT U KETONE (test code = 3258) Negative Negative - Negative POCT U UROBILI (test code = 3260) Normal 0.2-1 POCT U BILI (test code = 3261) Negative Negative - Negative POCT U BLD (test code = 3257) 5+ Negative - Negati ve POCT U COLOR (test code = 3266) Mirlande POCT U APPEAR (test code = 3267) Clear [facility] SARS-COV-2 ANTIGEN (BINAX NOW)2023-01-04 15:15:00* Test Item Value Reference Range Interpretation Comme nts POCT SARS-COV-2 ANTIGEN (shy t code = 66561-6) Not Detected Not Detected On board controls acceptable with C Line (test code = 3574) Yes [facility] SARS-COV-2 ANTIGEN (BINAX NOW)2023-01-04 15:15:00* Test Item Value Reference Range Interpretation Comme nts POCT SARS-COV-2 ANTIGEN (shy t code = 19784-8) Not Detected Not Detected On board controls acceptable with C Line (test code = 3574) Yes [facility] URINALYSIS W SPECIFIC [id number] 15:55:00* Test Item Value Reference Range Interpretation Comme nts POCT U SP GRAV (test code = 3255) 1.020 mg/dl 1.005-1.025 POCT PH U (test code = 3254) 6 mg/dl 5-8 POCT U LEUK EST (test code = 3263) trace Negative - Negative POCT U NIT (test code = 3262) neg Negative - Negati ve POCT U PROT (test code = 3259) trace Negative - Negative POCT U GLU (test code = 3256) normal Negative - Negati ve POCT U KETONE (test code = 3258) neg Negative - Negative POCT U UROBILI (test code = 3260) normal 0.2-1 POCT U BILI (test code = 3261) neg Negative - Negative POCT U BLD (test code = 3257) trace Negative - Negati ve POCT U COLOR (test code = 3266) dark yellow POCT U APPEAR (test code = 3267) clear [facility] URINALYSIS W SPECIFIC [id number] 15:55:00* Test Item Value Reference Range Interpretation Comme nts POCT U SP GRAV (test code = 3255) 1.020 mg/dl 1.005-1.025 POCT PH U (test code = 3254) 6 mg/dl 5-8 POCT U LEUK EST (test code = 3263) trace Negative - Negative POCT U NIT (test code = 3262) neg Negative - Negati ve POCT U PROT (test code = 3259) trace Negative - Negative POCT U GLU (test code = 3256) normal Negative - Negati ve POCT U KETONE (test code = 3258) neg Negative - Negative POCT U UROBILI (test code = 3260) normal 0.2-1 POCT U BILI (test code = 3261) neg Negative - Negative POCT U BLD (test code = 3257) trace Negative - Negati ve POCT U COLOR (test code = 3266) dark yellow POCT U APPEAR (test code = 3267) clear [facility] Notes Date/Time Note Provider Source 2024-06-12 16:14:07 Images from the original note were not included. Called to inform patient of results and recommendations as detailed below. Patient verbalized understanding. Fritz Bloom MD P Cardiology Nurse Heart ultrasound showed normal systolic (a.k.a pumping function) of the heart. Also cardiac valves showed good function with no significant stenosis (blockage) or regurgitations (leaks) This is reassuring. IE Chahal RN [facility] 2024-06-12 15:13:40 Monitor was downloaded and sent to heart station. Patient will be contacted once results are finalized. IE Baldwin RN [facility] 2024-06-12 12:41:10 Jose Daugherty is a 28 year old female Patient came in to clinic to drop off monitor and Patient Diary log - Placed in provider folder for review Please be advised, thank you. IE Pizarro [facility] 2024-06-12 10:54:16 Images from the original note were not included. Test results read on Seer. IE Sanchez MA [facility] 2024-06-12 08:42:31 Second attempted to contact patient with results/recommendations. LVM for patient to return call to [phone] and Parse message sent. IE Chahal RN [facility] 2024-06-11 09:57:56 Images from the original note were not included. Attempted to contact patient with results/recommendations. LVM for patient to return call to [phone]. If patient returns call please let her know that her heart ultrasound was within normal limits. Ok to read Dr. Bloom's message. Thank you. Fritz Bloom MD P Cardiology Nurse Heart ultrasound showed normal systolic (a.k.a pumping function) of the heart. Also cardiac valves showed good function with no significant stenosis (blockage) or regurgitations (leaks) This is reassuring. IE Baldwin RN [facility] 2024-06-10 15:30:00 48 hour holter monitor applied to patient, tolerated well. Return agreement letter signed, understanding verbalized. Monitor to be returned by 06/12/2024 @ 11 am IE Baldwin RN [facility] 2024-05-25 16:28:06 Images from the original note were not included. Called to inform patient of results and recommendations as detailed below. Patient verbalized understanding. Fritz Bloom MD P Cardiology Nurse Labs are reassuring showing improving cardiac injury and no evidence of increased inflammation. Please continue with plan discussed in the office visit. IE Chahal RN [facility] 2024-05-22 10:00:00 Images from the original note were not included. Venipuncture collection performed by clean technique on the left anticubitus. Total of 1 attempts were made. Slight pressure and a bandage/dressing were applied to the site(s). The patient experienced no complications. The following specimens were processed according to instructions and sent to [facility] laboratories per lab order on 05/22/2024 : LT BLUE 1 SST 2 RED LAV 1 PPT DK GREEN (LiHep) DK GREEN (SodH) REYNOLDS DK BLUE (K2) DK BLUE (S) ACD Blood Culture NIPT/NTD [facility] 2024-05-18 14:40:21 Discussed elevated troponin test result with the patient, patient continues to have chest discomfort. She was encouraged and educated to go to the nearest emergency for further evaluation. Patient understands and is willing to go to the hospital for evaluation. [facility] 2024-05-18 14:36:47 call center associate physician note: I received call from the lab regarding critical lab - elevated troponin level. I called patient and left VM, with instructions to report to ER. Will follow up with another phone call/ [facility] 2024-05-18 10:30:00 Images from the original note were not included. Venipuncture collection performed by clean technique on the right anticubitus. Total of 1 attempts were made. Slight pressure and a bandage/dressing were applied to the site(s). The patient experienced no complications. The following specimens were processed according to instructions and sent to [facility] laboratories per lab order on 05/18/2024 : Breath kit collected and sent out today. LT BLUE SST 1 RED LAV PPT DK GREEN (LiHep) DK GREEN (SodH) REYNOLDS DK BLUE (K2) DK BLUE (S) ACD Blood Culture NIPT/NTD [facility] 2024-04-15 16:36:32 Prescription sent to pharmacy [facility] 2024-04-15 12:45:00 Images from the original note were not included. Venipuncture collection performed by clean technique on the right anticubitus. Total of 1 attempts were made. Slight pressure and a bandage/dressing were applied to the site(s). The patient experienced no complications. The following specimens were processed according to instructions and sent to [facility] laboratories per lab order on 04/15/2024 : LT BLUE SST 2 RED LAV 1 PPT DK GREEN (LiHep) DK GREEN (SodH) REYNOLDS DK BLUE (K2) DK BLUE (S) ACD Blood Culture NIPT/NTD [facility] 2024-03-11 16:53:57 Will sent to HAND EDGER Mikaela Murray MA [facility] 2024-03-11 14:40:30 Needs to come from HAND EDGER [facility] 2024-03-11 13:58:29 norethindrone-e.estradioL-iro n (MICROGESTIN FE) 1.5 mg-30 mcg (21)/75 mg (7) tablet 84 tablet 1 09/24/2023 Please review and refill if appropriate. Last refill with Dr. Gallegos. [facility] 2023-09-24 13:13:50 Last Refilled: norethindrone-e.estradioL-iro n (MICROGESTIN FE) 1.5 mg-30 mcg (21)/75 mg (7) tablet 3 Packet 0 07/03/2023 -- No Sig: Take 1 tablet by mouth in the morning. Sent to pharmacy as: Microgestin Fe 1.530 (28) 1.5 mg-30 mcg (21)/75 mg (7) tablet (norethindrone-e.estradioL-ir on) Class: eRX Notes to Pharmacy: Sending Erx refill request Route: Oral Order: [id number] Date/Time Signed: 07/03/2023 17:18 E-Prescribing Status: Receipt confirmed by pharmacy (07/03/2023 5:18 PM [employer]) Notes: Please review and fill if appropriate. Recent Visits Date Type Provider Dept 03/12/23 Office Visit Valentina Gallegos MD [facility] 01/04/23 Office Visit Valentina Gallegos MD [facility] 08/08/22 Office Visit Valentina Gallegos MD [facility] 08/02/22 Office Visit Valentina Gallegos MD [facility] 07/03/22 Office Visit Valentina Gallegos MD [facility] Showing recent visits within past 540 days with a meds authorizing provider and meeting all other requirements Future Appointments No visits were found meeting these conditions. Showing future appointments within next 150 days with a meds authorizing provider and meeting all other requirements Thalia Rogers RN [facility] 2023-07-03 14:06:19 Images from the original note were not included. Requested Renewals Name from pharmacy: Microgestin Fe 1.5/30 Tab Will file in chart as: MICROGESTIN FE 1.5 mg-30 mcg (21)/75 mg (7) tablet Sig: Take 1 tablet by mouth in the morning. 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: Contraceptives Urxffl7807/03/2023 01:54 PM Protocol Details Valid encounter within last 12 months To be filled at: [facility] [place], [place] - [address] [place] [address] AT [address] Recent Visits Date Type Provider Dept 03/12/23 Office Visit Valentina Gallegos MD [facility] 01/04/23 Office Visit Valentina Gallegos MD [facility] 08/08/22 Office Visit Valentina Gallegos MD [facility] 08/02/22 Office Visit Valentina Gallegos MD [facility] 07/03/22 Office Visit Valentina Gallegos MD [facility] Showing recent visits within past 540 days with a meds authorizing provider and meeting all other requirements Future Appointments No visits were found meeting these conditions. Showing future appointments within next 150 days with a meds authorizing provider and meeting all other requirements IE Farias LVN [facility]
[2024-10-04] MEDS ORDERED: FAMOTIDINE 20 MG TAB ONE (15:54)
[2024-10-04] MEDS ORDERED: dexAMETHasone 10 MG/ML VIAL ONE (15:54)
--- NOTE | 2024-10-04 17:01 | ER ---
Nurse's Notes [facility] [place], [place] [facility] Name: Maria Guadalupe Daugherty Age: 28 yrs Sex: Female : 1995 Arrival Date: 10/04/2024 Time: 15:27 Bed 10 Private MD: Diagnosis: Rash and other nonspecific skin eruption Presentation: 10/04 15:40 Chief complaint: Patient states: about an hour ago patient was at work and started to la1 feel like she had heartburn, felt hot, face became red and she started getting hives all over and facial swelling, itching all over. Took 2 benadryl. Denies throat swelling. Slight swelling noted to lips. Unaware of any allergies. Coronavirus screen: Vaccine status: Patient reports receiving the 2nd dose of the covid vaccine. Ebola Screen: No symptoms or risks identified at this time. Onset: The symptoms/episode began/occurred 1 hour(s) ago. Anaphylaxis evaluation, no signs or symptoms of anaphylaxis were noted. Initial Sepsis Screen: Does the patient meet any 2 criteria? No. Patient's initial sepsis screen is negative. Does the patient have a suspected source of infection? No. Patient's initial sepsis screen is negative. Risk Assessment: Do you want to hurt yourself or someone else? Patient reports no desire to harm self or others. Onset of symptoms was October 04, 2024 at 14:45. 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 - Infectious Disease History:: Denies. - Social history:: Smoking status: Patient denies any tobacco usage or history of. Screenin:00 [facility] ED Fall Risk Assessment (Adult) History of falling in the last 3 months, hb including since admission No falls in past 3 months (0 pts) Confusion or Disorientation No (0 pts) Intoxicated or Sedated No (0 pts) Impaired Gait No (0 pts) Mobility Assist Device Used No (0 pt) Altered Elimination No (0 pt) Score/Fall Risk Level 0 - 2 = Low Risk Oriented to surroundings, Maintained a safe environment, Educated pt \T\ family on fall prevention, incl call for assistance when getting out of bed. Abuse screen: Denies threats or abuse. Denies injuries from another. Nutritional screening: No deficits noted. Tuberculosis screening: No symptoms or risk factors identified. Assessment: 16:00 General: Appears in no apparent distress. Behavior is calm, cooperative. Pain: Denies hb pain. Neuro: Level of Consciousness is awake, alert, obeys commands, Oriented to person, place, time, situation. Cardiovascular: Patient's skin is warm and dry. Respiratory: Airway is patent Respiratory effort is even, unlabored, Respiratory pattern is regular, symmetrical. GI: No signs and/or symptoms were reported involving the gastrointestinal system. : No signs and/or symptoms were reported regarding the genitourinary system. EENT: No signs and/or symptoms were reported regarding the EENT system. Derm: Skin is pink, warm \T\ dry. diffuse itching. Musculoskeletal: No signs and/or symptoms reported regarding the musculoskeletal system. 16:58 Reassessment: Patient appears in no apparent distress at this time. Patient and/or hb family updated on plan of care and expected duration. Pain level reassessed. Patient is alert, oriented x 3, equal unlabored respirations, skin warm/dry/pink. Vital Signs: 15:40 BP 122 / 81; Pulse 68; Resp 16; Temp 98.2; Pulse Ox 99% ; Weight 90.26 kg; Height 5 ft. me1 1 in. ; Pain 0/10; 15:40 Body Mass Index 37.60 (90.26 kg, 154.94 cm) me1 15:40 Pain Scale: Adult me1 ED Course: 15:32 Patient arrived in ED. cj3 15:33 Sushil Rivers FNP-C is PHCP. dr5 15:33 Yousif Terry MD is Attending Physician. dr5 15:45 Triage completed. me1 15:45 Arm band placed on Patient placed in an exam room. me1 16:00 Patient has correct armband on for positive identification. Provided Education on: hb medications, use of call light . 16:58 Jesenia Tanner, RN is Primary Nurse. hb 17:09 No provider procedures requiring assistance completed. Patient did not have IV access hb during this emergency room visit. Administered Medications: 16:06 Drug: Dexamethasone IM 10 mg IM once Route: IM; Site: right deltoid; hb 16:06 Drug: Famotidine PO 40 mg PO once Route: PO; Medication: 16:58 VIS not applicable for this client. hb Outcome: 17:01 Discharge ordered by . dr5 17:09 Discharged to home ambulatory, hb 17:09 Condition: stable 17:09 Discharge instructions given to patient, Instructed on discharge instructions, follow up and referral plans. medication usage, Demonstrated understanding of instructions, follow-up care, medications, Prescriptions given X 2, 17:10 Patient left the ED. hb Signatures: Jesenia Tanner, RN RN Vickie Nava RN RN me1 Sushil Rivers, INSOLE CHANNELER-C INSOLE CHANNELER-Cdr5 Arelis Giron 3
--- NOTE | 2024-10-04 17:01 | EDPHYS ---
Physician Documentation [facility] Name: Maria Guadalupe Daugherty Age: 28 yrs Sex: Female : 1995 Arrival Date: 10/04/2024 Time: 15:27 Bed 10 Private MD: ED Physician Yousif Terry HPI: 10/04 17:42 This 28 yrs old Female presents to ER via Ambulatory with complaints of dr5 Allergic Reaction. 17:42 Patient is a 28-year-old female with no past med history coming in for allergic dr5 reaction to something at work. Patient currently works at [employer] and does not know what new substance she got into. Patient reports that she had redness, hot, and rash appeared on face and bilateral arms. Patient took 50 mg of Benadryl prior to arrival. Patient reports that her symptoms are getting much better. HEEL DIPPER: 15:45 LMP 09/07/2024, unknown me1 Historical: - Allergies: 15:45 No Known Allergies; me1 - PMHx: 15:45 None; me1 - PSHx: 15:45 Appendectomy; me1 - Immunization history:: Adult Immunizations. - Infectious Disease History:: Denies. - Social history:: Smoking status: Patient denies any tobacco usage or history of. ROS: 17:42 Constitutional: as per hpi dr5 Exam: 17:42 Constitutional: This is a well developed, well nourished patient who is awake, alert, dr5 and in no acute distress. Head/Face: Normocephalic, atraumatic. ENT: Nares patent. No nasal discharge, no septal abnormalities noted. Tympanic membranes are normal and external auditory canals are clear. Oropharynx with no redness, swelling, or masses, exudates, or evidence of obstruction, uvula midline. Mucous membranes moist. Neck: Trachea midline, no thyromegaly or masses palpated, and no cervical lymphadenopathy. Supple, full range of motion without nuchal rigidity, or vertebral point tenderness. No Meningismus. Chest/axilla: Normal chest wall appearance and motion. Nontender with no deformity. No lesions are appreciated. Cardiovascular: Regular rate and rhythm with a normal S1 and S2. Normal PMI, no JVD. No pulse deficits. Respiratory: Lungs have equal breath sounds bilaterally, clear to auscultation. No rales, rhonchi or wheezes noted. No increased work of breathing, no retractions or nasal flaring. Back: No spinal tenderness. No costovertebral tenderness. Full range of motion. Skin: Warm, dry with normal turgor. Normal color with no rashes, no lesions, and no evidence of cellulitis. MS/ Extremity: Pulses equal, no cyanosis. Neurovascular intact. Full, normal range of motion. Neuro: Awake and alert, GCS 15, oriented to person, place, time, and situation. Cranial nerves II-XII grossly intact. Motor strength 5/5 in all extremities. Sensory grossly intact. Cerebellar exam normal. Normal gait. Vital Signs: 15:40 BP 122 / 81; Pulse 68; Resp 16; Temp 98.2; Pulse Ox 99% ; Weight 90.26 kg; Height 5 ft. me1 1 in. ; Pain 0/10; 15:40 Body Mass Index 37.60 (90.26 kg, 154.94 cm) me1 15:40 Pain Scale: Adult me1 MDM: 15:33 Medical Screening Exam initiated dr5 17:42 Differential diagnosis: angioedema, urticaria, Allergic Reaction. Data reviewed: vital dr5 signs, nurses notes. I considered the following discharge prescriptions or medication management in the emergency department Medications were administered in the Emergency Department. See MAR. Care significantly affected by the following Social Determinants of Health: Poor access to healthcare and/or lack of insurance, Poor access to transportation, Problems related to employment. Counseling: I had a detailed discussion with the patient and/or guardian regarding the historical points, exam findings, and any diagnostic results supporting the discharge/admit diagnosis, the presence of at least one elevated blood pressure reading (>120/80) during this emergency department visit, the need for outpatient follow up, for definitive care, an allergy/branch specialist, a family practitioner, to return to the emergency department if symptoms worsen or persist or if there are any questions or concerns that arise at home. ED course: Dexamethasone and Pepcid given to patient in ER. Will give patient steroid Dosepak to help with allergic reaction as well as steroid cream. All questions answered. No symptoms noted on on discharge. Rash and hives alleviated prior to arrival. 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 Administered Medications: 16:06 Drug: Dexamethasone IM 10 mg IM once Route: IM; Site: right deltoid; hb 16:06 Drug: Famotidine PO 40 mg PO once Route: PO; hb Disposition Summary: 10/04/24 17:01 Discharge Ordered Notes: Location: Home dr5 Condition: Stable dr5 Diagnosis - Rash and other nonspecific skin eruption dr5 Followup: dr5 - With: Emergency Department - When: As needed - Reason: Worsening of condition Followup: dr5 - With: Private Physician - When: 1 - 2 days - Reason: Recheck today's complaints, Continuance of care, Re-evaluation by your physician Discharge Instructions: - Discharge Summary Sheet hb - Allergies, Adult dr5 Forms: - Work release form hb - Medication Reconciliation Form dr5 - Patient Portal Instructions dr5 - Leadership Thank You Letter dr5 Prescriptions: - Medrol (Iain) 4 mg Oral Tablets, Dose Pack - take 1 tablet ORAL route as directed - follow package instructions; 1 packet; dr5 Refills: 0, Product Selection Permitted - Triamcinolone Acetonide 0.1 % Topical ointment - apply 1 application TOPICAL route every 12 hours As needed; 1 application; dr5 Refills: 0, Product Selection Permitted Addendum: 10/05/2024 19:23 Co-signature as Attending Physician, Yousif Terry MD I agree with the assessment and c gates plan of care. Signatures: Yousif Terry MD MD cha Baxter, Heather, RN RN Vickie Nava RN RN nj1 Sushil Rivers, ADMISSIONS DEAN-C ADMISSIONS DEAN-Cdr5
[2024-10-04 17:20] VITALS: BP 122/81; TEMP 98.2; O2SAT 99
== END 2024-10-04 17:10 | disposition home or self-care (01) ==
LOC: ER 15:27
DX: R21 Rash and other nonspecific skin eruption (principal)
CPT/HCPCS: 96372; 99284; J1100